=== PATIENT | female | born 1980 | race Caucasian/White ===

== ENCOUNTER 2019-05-09 10:40 | Outpatient (CLI) | payer BC | END 2019-05-09 10:41 | disposition home or self-care (01) | LOC: DTY/OP 10:40 | PROVIDERS: ATTEND Surgery | DX: E66.01 Morbid (severe) obesity due to excess calories (principal) | CPT/HCPCS: 97802 ==

== ENCOUNTER 2019-09-04 15:21 | Outpatient (CLI) | payer BC ==
--- NOTE | 2019-09-04 16:20 | RAD ---
Chest 2 views HISTORY: Preop. FINDINGS: Cardiac silhouette and pulmonary vasculature are unremarkable. Mediastinum is midline. No c onfluent airspace consolidation, pneumothorax, or pleural fluid are apparent. IMPRESSION: No active cardiopulmonary abnormalities are demonstrated.
[2019-09-04 17:10] LABS: #Eosinphils 0.1 thou/uL (0.0-0.7); #Lymphocytes 3.2 thou/uL (1.20-3.40); #Monocytes 0.5 thou/uL (0.11-0.59); #Neutrophils 5.2 thou/uL (1.40-6.50); %Basophils 0.5 % (0.0-1.0); %Eosinophils 1.1 % (0.0-10.0); %Lymphocytes 35.2 % (21.0-51.0); %Monocytes 5.5 % (0.0-10.0); %Neutrophils 57.7 % (42.0-75.0); Hemoglobin 13.9 g/dL (12.0-16.0); Mean Corpuscular HGB CONC 31.5 g/dL (32.0-36.0); Mean Corpuscular Hemoglobin 26.6 pg (27.0-31.0); Mean Corpuscular Volume 84.5 fL (78.0-98.0); Mean Platelet Volume 7.8 fL (7.4-10.4); Platelet Count 322 thou/uL (130-400); RBC Distribution Width 11.7 % (11.5-14.5); Red Blood Cell (RBC) Count 5.23 mill/uL (4.20-5.40); White Blood Cell (WBC) Count 9.1 thou/uL (4.8-10.8)
[2019-09-04 17:24] LABS: BHCG - Serum Negative (NEGATIVE); Pregs Control Background? CLEAR/WHITE (CLR/WHITE); Pregs Control Bar Appear? YES (CONTROL BAR)
[2019-09-04 17:42] LABS: ALT (SGPT) 17 U/L (8-55); AST (SGOT) 14 U/L (5-34); Albumin 4.5 g/dL (3.5-5.0); Alkaline Phosphatase 68 U/L (40-110); Anion Gap 10 mmol/L (10-20); BUN (Urea Nitrogen) 11 mg/dL (7.0-18.7); Bilirubin, Total 0.4 mg/dL (0.2-1.2); Calc. Creatinine Clearance 0 mL/min (70-130); Calcium 9.4 mg/dL (7.8-10.44); Carbon Dioxide 26 mmol/L (22-29); Chloride 107 mmol/L (98-107); Estimated GFR-MDRD Greater than 90; Globulin 2.8 g/dL (2.4-3.5); Glucose 89 mg/dL (70-105); Potassium 3.7 mmol/L (3.5-5.1); Protein, Total 7.3 g/dL (6.0-8.3); Sodium 139 mmol/L (136-145)
== END 2019-09-04 15:22 | disposition home or self-care (01) ==
LOC: LABBT 15:21
PROVIDERS: ATTEND Surgery
DX: Z01.818 Encounter for other preprocedural examination (principal); E66.01 Morbid (severe) obesity due to excess calories
CPT/HCPCS: 71046; 80053; 83036; 84703; 85025; 93005; 93010

== ENCOUNTER 2019-09-18 09:40 | Inpatient (IN) | payer BC ==
[2019-09-04 15:41] VITALS: BMI 38.9
[2019-09-18] MEDS ORDERED: PROPOFOL 200 MG/20 ML VIAL ONE (10:17)
[2019-09-18] MEDS ORDERED: Rocuronium Bromide 10 MG/ML (10ML VIAL) ONE (10:17)
[2019-09-18] MEDS ORDERED: Lidocaine 1% PF 5 ML VIAL ONE (10:17)
[2019-09-18] MEDS ORDERED: Glycopyrrolate 0.2 MG/ML 5 ML SYRINGE ONE (10:17)
[2019-09-18] MEDS ORDERED: Dexamethasone 20 MG/5 ML VIAL ONE (10:17)
[2019-09-18] MEDS ORDERED: Ondansetron PF 4 MG/2 ML Vial ONE ×2 (10:17→15:55)
[2019-09-18] MEDS ORDERED: Heparin 5,000 UNITS/ML VIAL ONE (10:40)
[2019-09-18] MEDS ORDERED: Midazolam HCl 2 mg/2 ml Vial ONE (11:38)
[2019-09-18] MEDS ORDERED: Fentanyl 100 MCG/2 ML VIAL ONE ×3 (12:01→14:03)
[2019-09-18] MEDS ORDERED: Lidocaine 1% w/Epinephrine 1:100K 20 ML VIAL ONE (12:04)
[2019-09-18] MEDS ORDERED: Bupivacaine PF 0.5% 30 ML VIAL ONE (12:04)
[2019-09-18] MEDS ORDERED: Promethazine HCl 25 MG/ML VIAL SLOW IVP PRN (13:43)
[2019-09-18] MEDS ORDERED: Ondansetron HCl/PF 4 MG/2 ML Vial IVP PRN (13:43)
[2019-09-18] MEDS ORDERED: Promethazine HCl 25 MG/ML VIAL IM PRN ×3 (13:43→16:29)
[2019-09-18] MEDS ORDERED: Meperidine HCl/PF 25 MG/ML VIAL SLOW IVP PRN (13:43)
[2019-09-18] MEDS ORDERED: diphenhydrAMINE 50 MG/ML VIAL IM PRN (14:01)
[2019-09-18] MEDS ORDERED: diphenhydrAMINE 25 MG CAP PO PRN (14:01)
[2019-09-18] MEDS ORDERED: fentaNYL Citrate/PF 2,000 MCG in Sodium Chloride 0.9% 60 ML IV PRN (14:01)
[2019-09-18] MEDS ORDERED: diphenhydrAMINE 50 MG/ML VIAL IVP PRN ×2 (14:01→16:29)
[2019-09-18] MEDS ORDERED: Zolpidem Tartrate 5 MG TAB PO PRN (14:01)
[2019-09-18] MEDS ORDERED: Naloxone HCl 0.4 mg/ml Vial IV PRN (14:01)
[2019-09-18] MEDS ORDERED: Promethazine HCl 25 MG/ML VIAL ONE (14:03)
[2019-09-18] MEDS ORDERED: Communication Order-Pharmacy FS SCH (14:15)
[2019-09-18] MEDS ORDERED: D5 1/2 NS w/20 mEq KCL 1,000 ML ONE (14:34)
[2019-09-18] MEDS ORDERED: hydrALAZINE 20 MG/ML VIAL ONE (14:39)
[2019-09-18] MEDS ORDERED: Dextrose 5% in Water 1,000 ML IV PRN (16:29)
[2019-09-18] MEDS ORDERED: Dextrose 50% Abboject 50 ML SYRINGE SLOW IVP PRN (16:29)
[2019-09-18] MEDS ORDERED: Ondansetron PF 4 MG/2 ML Vial IVP PRN (16:29)
[2019-09-18] MEDS: hydrALAZINE 20 MG/ML VIAL SLOW IVP PRN (18:36)
[2019-09-18] MEDS: Ondansetron PF 4 MG/2 ML Vial IVP PRN (18:36)
[2019-09-18] MEDS: Acetaminophen 1,000 MG in Premix Bag 1 BAG IVPB SCH ×2 (18:38→23:06)
[2019-09-18] MEDS: D5 1/2 NS w/20 mEq KCL 1,000 ML IV SCH (20:06)
[2019-09-18] MEDS ORDERED: Enoxaparin Sodium 40 MG/0.4 ML SYRINGE SC SCH (21:00)
[2019-09-19] MEDS: D5 1/2 NS w/20 mEq KCL 1,000 ML IV SCH ×2 (01:36→08:41)
[2019-09-19] MEDS: hydrALAZINE 20 MG/ML VIAL SLOW IVP PRN (03:57)
[2019-09-19] MEDS: Ondansetron PF 4 MG/2 ML Vial IVP PRN ×2 (03:57→12:45)
[2019-09-19] MEDS: Acetaminophen 1,000 MG in Premix Bag 1 BAG IVPB SCH ×2 (05:06→12:48)
[2019-09-19 05:28] LABS: #Basophils 0.1 thou/uL (0.0-0.2); #Lymphocytes 1.5 thou/uL (1.20-3.40); #Monocytes 0.8 thou/uL (0.11-0.59); #Neutrophils 12.8 thou/uL (1.40-6.50); %Basophils 0.3 % (0.0-1.0); %Eosinophils 0.2 % (0.0-10.0); %Lymphocytes 9.8 % (21.0-51.0); %Monocytes 5.5 % (0.0-10.0); %Neutrophils 84.3 % (42.0-75.0); Hemoglobin 13.6 g/dL (12.0-16.0); Mean Corpuscular HGB CONC 33.8 g/dL (32.0-36.0); Mean Corpuscular Volume 82.9 fL (78.0-98.0); Mean Platelet Volume 8.1 fL (7.4-10.4); Platelet Count 318 thou/uL (130-400); RBC Distribution Width 12.3 % (11.5-14.5); Red Blood Cell (RBC) Count 4.86 mill/uL (4.20-5.40); White Blood Cell (WBC) Count 15.2 thou/uL (4.8-10.8)
[2019-09-19 05:48] LABS: Anion Gap 11 mmol/L (10-20); BUN (Urea Nitrogen) Less than 4 mg/dL (7.0-18.7); Calc. Creatinine Clearance 178 mL/min (70-130); Calcium 8.7 mg/dL (7.8-10.44); Carbon Dioxide 21 mmol/L (22-29); Chloride 101 mmol/L (98-107); Estimated GFR-MDRD Greater than 90; Glucose 160 mg/dL (70-105); Potassium 3.8 mmol/L (3.5-5.1); Sodium 129 mmol/L (136-145)
[2019-09-19] MEDS ORDERED: Levothyroxine Sodium 50 MCG TAB PO SCH (06:00)
[2019-09-19] MEDS ORDERED: Pantoprazole 40 MG VIAL IVP SCH (09:00)
--- NOTE | 2019-09-19 09:11 | PRG ---
DATE OF SERVICE: 09/19/2019 Postop day #1. SUBJECTIVE: Ms. Leong is complaining of nausea this morning. She has been ambulatory. She is drinking some liquids, but has the hiccups. OBJECTIVE: VITAL SIGNS: She is afebrile. Vital signs are stable. ABDOMEN: Soft. The wounds are healing well. ASSESSMENT: Postop day #1, laparoscopic gastric sleeve and hiatal hernia repair. PLAN: We will reassess in the afternoon. If nausea and hiccuping are improved, likely discharge today. Job ID: [id number]
[2019-09-19] MEDS: Hydrocodone-Acetamin 15 ML UDCUP PO PRN ×2 (12:46→17:07)
--- NOTE | 2019-09-19 14:43 | OP ---
DATE OF PROCEDURE: 09/19/2019 PREOPERATIVE DIAGNOSIS: Morbid obesity with a BMI of 40. POSTOPERATIVE DIAGNOSES: 1. Morbid obesity with a BMI of 40. 2. Hiatal hernia, paraesophageal. PROCEDURES PERFORMED: 1. Laparoscopic sleeve gastrectomy with [place] staple line reinforcement and 38-[place] bougie. 2. Paraesophageal hiatal hernia repair without fundoplication or mesh. ANESTHESIA: General. ESTIMATED BLOOD LOSS: Minimal. COMPLICATIONS: None. FINDINGS: Hiatal hernia. DESCRIPTION OF PROCEDURE: The patient was taken to the operating room and laid supine on the operating room table. After general anesthetic was obtained, bilateral arms and legs were double strapped to bariatric table. Her abdomen was prepped and draped in a sterile fashion. OG tube had been used to decompress the stomach. Left subcostal 5 mm Optiview trocar was placed in the usual fashion and high-flow pneumoperitoneum was obtained. Left and right abdominal 12-mm ports as well as right subcostal 5-mm port were placed under direct visualization. A 5-mm incision was made at the xiphoid and Leoncio was used to raise the liver off the GE junction. Short gastrics were taken down from mid body of stomach to left messi of diaphragm. Left messi, posterior fundus, and angle of His were completely dissected. Short gastrics were taken down to a distance of 6 cm proximal to the pylorus. A hiatal hernia was found. A circumferential dissection of the esophagus was performed, bringing the fundus and GE junction back into the abdominal cavity. A 38 bougie was brought and its tip left in the antrum of the stomach. Multiple loads of an [place] stapling device were used to perform the sleeve, the 1st was fired at a distance of 6 cm proximal to the pylorus, angled up towards the incisura. Multiple loads were fired up along the bougie. Stomach was completely transected at the angle of His. Stomach was removed from the left abdominal incision. This fascial defect was closed using Gra[place] needle 0 Vicryl tie. The posterior crura were reapproximated using an Ethibond suture and the tie-knot system. EGD scope was passed through esophagus and stomach to the level of the duodenum after the bougie was removed and there was no evidence of stricture at the incisura. No air leakage through the staple line. EGD scope was used to decompress the stomach. It was pulled and removed. All port sites were infiltrated using local anesthetic. All ports and the Leoncio were all removed under direct visualization without bleeding. Pneumoperitoneum was let down. The Vicryl was used to close the fascial defect from the left abdominal incisions. All incisions were irrigated and closed using 4-0 Monocryl and Dermabond. The patient was sent to Recovery in stable condition. All instrument counts, needle counts, and lap counts were correct. Job ID: [id number]
[2019-09-19 16:33] VITALS: BP 155/84; TEMP 98.2
--- NOTE | 2019-09-20 04:39 | PQF ---
[facility] Intensive Physician Crystal Reports Winform ViewerSPEARMunirIKEBISMARK QUEVEDO MD [id number] [facility] A- [id number] CLINICAL DOCUMENTATION CLARIFICATION FORM: POST DISCHARGE Addendum to original discharge summary date: ____ Late entry note date: __ DATE: 09/20/2019 ATTN: BISMARK BUSH MD Please exercise your independent, professional judgment in responding to the clarification form. Clinical indicators are provided on the bottom of this form for your review Please check appropriate box(s): [ ] Hyponatremia please specify etiology, if known [ ] Hyponatremia due to SIADH (Syndrome of Inappropriate Secretion of Antidiuretic Hormone) [ ] Other diagnosis [ X] Unable to determine In addition, please specify: Present on Admission (POA): [ ] Yes [ ] No [ ] Unable to determine CLINICAL INDICATORS - SIGNS / SYMPTOMS / LABS Na level 129 on 09/19 - Documented in Laboratory result Morbid Obesity - Documented in PNs on BISMARK BUSH MD Complaining nausea - Documented in PNs on BISMARK BUSH MD [employer] Post op day 1 from Laparoscopic gastric sleeve and hiatal hernia repair - Documented in PNs on BISMARK BUSH MD HTN TREATMENTS: IV fluids KCL 1000ml - Medication report (This form is maintained as a part of the permanent medical record) 2014 [employer]. All Rights Reserved [email or web address] [not provided] TERRID
== END 2019-09-19 17:21 | disposition home or self-care (01) | DRG 621 ==
LOC: SURG A 09:40
PROVIDERS: ADMIT Surgery; ATTEND Surgery
PROC: 0DB64Z3 Excision of Stomach, Percutaneous Endoscopic Approach, Vertical (ICD-10-PCS; principal; 2019-09-19)
PROC: 0BQT4ZZ Repair Diaphragm, Percutaneous Endoscopic Approach (ICD-10-PCS; 2019-09-19)
PROC: 0DJ08ZZ Inspection of Upper Intestinal Tract, Via Natural or Artificial Opening Endoscopic (ICD-10-PCS; 2019-09-19)
DX: E66.01 Morbid (severe) obesity due to excess calories (principal); K44.9 Diaphragmatic hernia without obstruction or gangrene; G43.909 Migraine, unspecified, not intractable, without status migrainosus; F17.200 Nicotine dependence, unspecified, uncomplicated; F90.9 Attention-deficit hyperactivity disorder, unspecified type; Z68.39 Body mass index [BMI] 39.0-39.9, adult
CPT/HCPCS: 36415; 80048; 85025; 88307; 88312; C9113; J0131; J0360; J0690; J1100; J1644; J1650; J2001; J2250; J2405; J2550; J2704; J3010; S0020

== ENCOUNTER 2020-07-04 11:35 | Outpatient (CLI) | payer BC ==
--- NOTE | 2020-07-04 13:08 | MMO ---
Bilateral MAMMO Bilat Screen [facility]. CLINICAL HISTORY: Patient is 40 years old and is seen for screening. The patient has no family history of breast cancer. The patient has no personal history of cancer. VIEWS: The views performed were: bilateral craniocaudal with tomosynthesis and bilateral mediolateral oblique with tomosynthesis. This study has been interpreted with the assistance of computer-aided detection. MAMMOGRAM FINDINGS: There are scattered fibroglandular densities. There is an equal density, oval mass measuring 7 millimeters with obscured margins seen in the right breast at 9 o'clock. In the left breast, there are no suspicious masses, calcifications or areas of architectural distortion. IMPRESSION: MASS IN THE RIGHT BREAST REQUIRES ADDITIONAL EVALUATION. AN ULTRASOUND EXAM IS RECOMMENDED. THE RESULTS OF THIS EXAM WERE SENT TO THE PATIENT. ACR BI-RADS Category 0 - Incomplete: Need additional imaging evaluation. [facility] will notify the patient of the need for additional imaging services. MAMMOGRAPHY NOTE: 1. A negative mammogram report should not delay a biopsy if a dominant of clinically suspicious mass is present. 2. Approximately 10% to 15% of breast cancers are not detected by mammography. 3. Adenosis and dense breasts may obscure an underlying neoplasm. Reported by: ESTELITA CONTRERAS MD Electonically Signed: [id number]
== END 2020-07-04 11:36 | disposition home or self-care (01) ==
LOC: BICMAMMO 11:35
PROVIDERS: ATTEND Family Medicine
DX: Z12.31 Encounter for screening mammogram for malignant neoplasm of breast (principal); N63.10 Unspecified lump in the right breast, unspecified quadrant
CPT/HCPCS: 77063; 77067

== ENCOUNTER 2020-07-11 09:45 | Outpatient (CLI) | payer BC ==
--- NOTE | 2020-07-11 11:35 | ULT ---
RIGHT BREAST ULTRASOUND: Date: 07/11/2020 HISTORY: Prior diagnostic mammogram demonstrates a circumscribed mass in the 9 o'clock position of the right b reast for further evaluation with ultrasound. FINDINGS: The right breast is evaluated in the 9 o'clock position, approximately 4.0 cm from the nipple. There is an oval, circumscribed cyst at 9 o'clock, measuring 0.4 x 0.3 x 0.7 cm in size, corresponding to t he mammographic finding. IMPRESSION: Benign cyst at 9 o'clock, 4.0 cm from the nipple, corresponding to the mammographic finding. BI-RADS Category 2 - Benign findings. Continued annual follow-up exams.
== END 2020-07-11 09:46 | disposition home or self-care (01) ==
LOC: BICULT 09:45
PROVIDERS: ATTEND Family Medicine
DX: N63.10 Unspecified lump in the right breast, unspecified quadrant (principal); N60.01 Solitary cyst of right breast

== ENCOUNTER 2022-12-03 15:18 | Outpatient (CLI) | payer BC | END 2022-12-03 15:19 | disposition home or self-care (01) | LOC: BICMAMMO 15:18 | PROVIDERS: ATTEND Obstetrics & Gynecology | DX: Z12.31 Encounter for screening mammogram for malignant neoplasm of breast (principal); N64.89 Other specified disorders of breast; Q83.8 Other congenital malformations of breast | CPT/HCPCS: 77063; 77067 ==

== ENCOUNTER 2022-12-14 08:12 | Outpatient (CLI) | payer BC | END 2022-12-14 08:13 | disposition home or self-care (01) | LOC: BICMAMMO 08:12 | PROVIDERS: ATTEND Obstetrics & Gynecology | DX: N64.89 Other specified disorders of breast (principal) | CPT/HCPCS: G0279 ==